=== PATIENT | female | born 1965 | race Caucasian/White ===

== ENCOUNTER 2017-09-11 08:24 | Outpatient (RCR) | payer BC, OTHER ==
[2017-09-03 10:41] LABS: PLATELET COUNT, AUTOMATED 210 K/uL (150-450)
[~2017-09-11 08:24] MED LIST: ACET-1718 PO; IBUP800T37 PO; MULT1CAP59 PO; NO MEDICATIONS; TAMO20TA24 PO
[2017-09-11 08:32] VITALS: BP 132/79
--- NOTE | 2017-09-11 16:37 | ONCOLOGY FOLLOW UP NOTE ---
EVENT DATE: September 11, 2017 REASON FOR FOLLOWUP DCIS. INTERIM HISTORY Janie returns to clinic for a follow-up visit today. Since our last visit, she has been feeling quite good. She is working at the long[employer]. She reports no new breast changes, and no concerning skin changes of the breast. She has noticed no lumps or bumps under the arms. She does report that she had two odd skin blisters arise recently, one on the upper chest, and another on the posterior right thigh. These were both self-limited. The skin findings arose after a viral infection. Her appetite is good, and her weight has been stable. She is happy about how things are going. She remains on tamoxifen. She reports that there has been no recent vaginal bleeding. REVIEW OF SYSTEMS Otherwise negative, and all systems were reviewed. ONCOLOGY HISTORY 1. Bilateral DCIS diagnosed in 2012. a. August 16, 2012: Bilateral mastectomies with implant reconstruction. Pathology of right breast reveals ductal carcinoma in situ, completely excised. Five of 5 lymph nodes negative. Left breast reveals ductal breast in situ completely excised. b. August 27, 2013: Initiation of adjuvant tamoxifen. PAST MEDICAL HISTORY 1. Status post appendectomy. 2. Status post tonsillectomy and adenoidectomy. 3. History of endometriosis. SOCIAL HISTORY Patient is a former smoker, having smoked about one pack a day for 25 years. She quit in 2009. She drinks alcohol only occasionally. There is no history of illicit drug use. 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 VITAL SIGNS Temperature is 98.5, blood pressure 132/89, heart rate is 61, respirations 16, oxygen saturation is 94% on room air. Weight is 55.79 kg. PHYSICAL EXAMINATION GENERAL: Patient is alert and oriented times three, in no apparent distress sitting in the exam room chair. She appears quite healthy. HEENT: Exam reveals anicteric sclerae. NEUROLOGIC: Exam is grossly nonfocal and her gait is normal. EXTREMITIES: Exam reveals no edema, clubbing or cyanosis. There is no erythema or tenderness to palpation. LABORATORY STUDIES Reviewed per the [facility] record. ASSESSMENT AND PLAN Bilateral ductal carcinoma in situ. I had a good visit with Janie today. Symptomatically, she continues to do quite well. She remains on tamoxifen. She will be finished with her tamoxifen in one year's time. She has had expected, but modest side effects, to include hot flashes and some fatigue. Importantly, she has had no recent/recurrent/heavy vaginal bleeding while on tamoxifen. I will plan to see her back for followup in six months, or sooner if there are questions or concerns. MTDD
== END 2017-10-02 13:57 | disposition home or self-care (01) ==
LOC: ONC 08:24
PROVIDERS: ATTEND Internal Medicine Medical Oncology
DX: D05.82 Other specified type of carcinoma in situ of left breast (principal); D05.81 Other specified type of carcinoma in situ of right breast; Z78.0 Asymptomatic menopausal state; Z87.42 Personal history of other diseases of the female genital tract; Z92.21 Personal history of antineoplastic chemotherapy; Z79.810 Long term (current) use of selective estrogen receptor modulators (SERMs); Z87.891 Personal history of nicotine dependence
CPT/HCPCS: 36415; 82040; 82247; 82310; 82374; 82435; 82565; 82947; 84075; 84132; 84155; 84295; 84450; 84460; 84520; 85025; 99212

== ENCOUNTER 2018-03-19 08:00 | Outpatient (RCR) | payer BC, OTHER ==
[2018-03-14 13:07] VITALS: BP 123/70
[2018-03-14 13:10] LABS: PLATELET COUNT, AUTOMATED 192 K/uL (150-450)
[2018-03-19 08:03] VITALS: BP 122/84
--- NOTE | 2018-03-19 10:17 | ONCOLOGY FOLLOW UP NOTE ---
EVENT DATE: March 19, 2018 REASON FOR FOLLOWUP Bilateral DCIS, status post bilateral mastectomies and implant reconstruction. INTERIM HISTORY Janie returns to clinic for a followup visit today. Since just finished with a shift at the long-term so she is pretty tired. In general, she reports that things have been going quite well. She reports no new pain and no fever. She has noticed no skin changes or lumps/bumps under the arms. She has had a good appetite and her weight has been stable. She does report fatigue from time to time, mostly related to work. She has also been dealing with hot flashes. These happen periodically during the day and are tolerable. She has had no abdominal pain or change in bowel habits. She reports no new urinary symptoms. REVIEW OF SYSTEMS Otherwise negative and all systems were reviewed. ONCOLOGY HISTORY 1. Bilateral DCIS diagnosed in 2012. a. August 16, 2012: Bilateral mastectomies with implant reconstruction. Pathology of right breast reveals ductal carcinoma in situ, completely excised. Five of 5 lymph nodes negative. Left breast reveals ductal breast in situ completely excised. b. August 27, 2013: Initiation of adjuvant tamoxifen. PAST MEDICAL HISTORY 1. Status post appendectomy. 2. Status post tonsillectomy and adenoidectomy. 3. History of endometriosis. SOCIAL HISTORY Patient is a former smoker, having smoked about one pack a day for 25 years. She quit in 2009. She drinks alcohol only occasionally. There is no history of illicit drug use. 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 CURRENT MEDICATIONS 1. Tamoxifen 20 mg p.o. daily. 2. Multivitamin once daily. ALLERGIES No known drug allergies. She does have SENSITIVITY to MILK, SOME CHICKEN PRODUCTS, LATEX and WHEAT. VITAL SIGNS Temperature is 97.8, blood pressure 122/84, heart rate is 81, respirations 16, oxygen saturation is 96% on room air. Weight is 124.4 pounds. PHYSICAL EXAMINATION GENERAL: Patient is alert and oriented x3, in no apparent distress, sitting in the exam room chair. She appears quite healthy. HEENT: Exam reveals anicteric sclerae. NEUROLOGIC: Exam is grossly nonfocal and her gait is normal. EXTREMITIES: Exam reveals no edema, clubbing or cyanosis. BREAST: Deferred. LABORATORY STUDIES Reviewed per the [facility] record and are unremarkable. ASSESSMENT AND PLAN Bilateral ductal carcinoma in situ. Janie continues to do remarkably well. She will be done with adjuvant endocrine therapy with Tamoxifen in mid August 2018. She is certainly looking forward to being done. She has no concerning signs or symptoms to suggest breast cancer recurrence. She does not miss doses of Tamoxifen. She is having hot flashes but these have been tolerable. She is getting a lot of physical activity and she tends to eat healthy diet. We will plan to have her follow up again with me in late July of early August 2018, at the time when she is planning to stop her Tamoxifen. At that time, she will have the choice of continuing annual followup with [facility] but I have also recommended that she continue followup with her primary care provider as well as [facility]. We discussed the importance of annual breast exams. She had several additional questions for me today and I believe I answered all of her questions to her satisfaction. SKYE
== END 2018-04-02 13:26 | disposition home or self-care (01) ==
LOC: ONC 08:00
PROVIDERS: ATTEND Internal Medicine Medical Oncology
DX: D05.82 Other specified type of carcinoma in situ of left breast (principal); D05.81 Other specified type of carcinoma in situ of right breast; Z78.0 Asymptomatic menopausal state; Z87.42 Personal history of other diseases of the female genital tract; Z92.21 Personal history of antineoplastic chemotherapy; Z79.810 Long term (current) use of selective estrogen receptor modulators (SERMs); Z87.891 Personal history of nicotine dependence
CPT/HCPCS: 36415; 82040; 82247; 82310; 82374; 82435; 82565; 82670; 82947; 84075; 84132; 84155; 84295; 84450; 84460; 84520; 85025; 99212

== ENCOUNTER 2018-09-25 14:26 | Outpatient (RCR) | payer BC, OTHER ==
--- NOTE | 2018-10-02 12:05 | ONCOLOGY FOLLOW UP NOTE ---
EVENT DATE: September 25, 2018 REASON FOR FOLLOWUP Bilateral DCIS, status post bilateral mastectomies and implant reconstruction. INTERIM HISTORY Janie returns to clinic for a followup visit today. She is accompanied by her . She reports that she has been feeling great. She has no particular symptoms of concern today. She continues to work full-time at the [employer]. She has stopped her adjuvant endocrine therapy. REVIEW OF SYSTEMS Otherwise negative and all systems reviewed. ONCOLOGY HISTORY 1. Bilateral DCIS diagnosed in 2012. a. August 16, 2012: Bilateral mastectomies with implant reconstruction. Pathology of right breast reveals ductal carcinoma in situ, completely excised. Five of 5 lymph nodes negative. Left breast reveals ductal breast in situ completely excised. b. August 27, 2013: Initiation of adjuvant tamoxifen. PAST MEDICAL HISTORY 1. Status post appendectomy. 2. Status post tonsillectomy and adenoidectomy. 3. History of endometriosis. SOCIAL HISTORY Patient is a former smoker, having smoked about one pack a day for 25 years. She quit in 2009. She drinks alcohol only occasionally. There is no history of illicit drug use. 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 CURRENT MEDICATIONS Multivitamin once daily. ALLERGIES No known drug allergies. She does have SENSITIVITY to MILK, SOME CHICKEN PRODUCTS, LATEX and WHEAT. VITAL SIGNS Patient is afebrile. Blood pressure 111/71, heart rate 84, respirations 16, oxygen saturation 95% on room air. Weight is 133.4 kg. PHYSICAL EXAMINATION GENERAL: Patient is alert and oriented x3, in no apparent distress. She is interactive and pleasant. She appears quite healthy. She is in good spirits. HEENT: Anicteric sclerae. NEUROLOGIC: Exam is grossly nonfocal and her gait is normal. SKIN, CURSORY: No concerning rash or lesion. EXTREMITIES: No edema, clubbing or cyanosis. LABORATORY STUDIES Reviewed per the [facility] record. ASSESSMENT AND PLAN Bilateral ductal carcinoma in situ. Janie has completed adjuvant endocrine therapy. She has stopped her Tamoxifen. She feels quite well. She has no concerning signs or symptoms to suggest breast cancer recurrence. We spent time today discussing ongoing followup. I have offered her annual visits here in the clinic. We discussed the importance of regular physical activity and helpful nutrition. Of course, I would be more than happy to see her sooner than our one year followup if she has questions or concerns. All questions answered today. SKYE
== END 2018-11-03 14:49 | disposition home or self-care (01) ==
LOC: ONC 14:26
PROVIDERS: ATTEND Internal Medicine Medical Oncology
DX: Z85.3 Personal history of malignant neoplasm of breast (principal); Z92.21 Personal history of antineoplastic chemotherapy; Z87.891 Personal history of nicotine dependence